=== PATIENT | male | born 1990 | race Two or more races ===

== ENCOUNTER 2019-11-28 10:56 | Emergency (ER) | payer OTHER ==
[~2019-11-28] VITALS: Ht 167.6 cm; Wt 65.3 kg
[2019-11-28] MEDS ORDERED: ZITHROMAX500 MG PO (14:28)
[2019-11-28] MEDS ORDERED: TUSSI PRES-B L480 ML PO (14:28)
== END 2019-11-28 14:34 | disposition home or self-care (01) ==
LOC: ER 10:56
DX: B34.9 Viral infection, unspecified (principal)